=== PATIENT | female | born 1930 | race Caucasian/White ===

== ENCOUNTER → 2017-06-14 09:10 | Emergency (ER) | payer OTHER, MEDICARE ==
[~2017-06-14] VITALS: Ht 172.7 cm; Wt 81.6 kg
[2017-06-14 09:49] VITALS: BP 0/0
--- NOTE | 2017-06-14 09:51 | ED CRITICAL CARE ---
History of Present Illness General Chief Complaint: Cardiopulmonary Resuscitation Stated Complaint: CARDIAC ARREST Source: family, old records, EMS Exam Limitations: no limitations Vital Signs & Intake/Output Vital Signs & Intake/Output Vital Signs Date Time Temp Pulse Resp B/P B/P Pulse O2 O2 Flow FiO2 Mean Ox Delivery Rate 06/14 0949 0 0 0/0 . Allergies Uncoded Allergies: Allergy Other NONE Med Allergies NKA Triage Nurses Notes Reviewed? yes Onset: Just prior to arrival Duration: minute(s):, constant, continues in ED Timing: recent history Injury Environment: home Severity: severe Pain Location: none Modifying Factors: Improves With: other. LMP (ages 10-50): post menopausal : No Patient currently breastfeeds: No HPI: Prior to admission while seated at the breakfast table the patient slumped over unresponsive. EMS found the patient to be in asystole and started ACLS protocol. After epinephrine 3 the patient was found to have sinus bradycardia that reverted to asystole. DNR/I forms found, CPR continued. The family denies fever chills nausea vomiting diarrhea abdominal pain chest pain shortness of breath headache dysuria rash bleeding. Past History Travel History Traveled to [place] past 21 day No Medical History Any Pertinent Medical History? see below for history Neurological: dementia Cardiovascular: CAD, CHF, hypertension Respiratory: COPD, lung cancer Psychiatric: anxiety Surgical History Surgical History: non-contributory Psychosocial History What is your primary language Indonesian Family History Hx Contributory? No Review of Systems Review of Systems Constitutional: Reports: see HPI, weakness. Eyes: Reports: no symptoms. Ears, Nose, Throat, Mouth: Reports: no symptoms. Respiratory: Reports: no symptoms. Cardiovascular: Reports: no symptoms. Gastrointestinal/Abdominal: Reports: no symptoms. Genitourinary: Reports: no symptoms. Musculoskeletal: Reports: no symptoms. Skin: Reports: no symptoms. Neurological/Psychological: Reports: see HPI, weakness. All Other Systems: Reviewed and Negative Physical Exam Physical Exam General Appearance: well developed/nourished, obese Head: atraumatic, normal appearance Eyes: Bilateral: other (pupils fixed and dilated). Ears, Nose, Throat, Mouth: dry mucous membranes Neck: normal inspection Respiratory: no spontaneous respiration Cardiovascular: no cardiac activity Peripheral Pulses: 0 carotid (R), 0 carotid (L), 0 femoral (R), 0 femoral (L) Gastrointestinal: soft, no organomegaly Back: normal inspection Extremities: no ligament instability Neurologic/Psych: motor/sensory deficits Skin: intact, pallor Core Measures ACS in differential dx? Yes No ASA d/t Medical Contraindication CVA/TIA Diagnosis No Sepsis Present: No Sepsis Focused Exam Completed? No Progress Differential Diagnoses I considered the following diagnoses in my evaluation of the patient: AMI respiratory arrest asystole Plan of Care: pronounced 910 AM Initial ED EKG: none Rhythm Strip: asystole Comments: Family updated PMD updated package completed Departure Departure Time of Disposition: 909 Disposition: Condition: Stable Clinical Impression Primary Impression: Cardiac asystole Referrals: Zachary BROWNING,MNey Garcia (PCP/Family) Departure Forms: General Discharge Information Critical Care Note Critical Care Note Critical Care Time: non-applicable
== END | disposition expired ==
LOC: ERH 09:10 → ENTRNSPT 12:05 → EDTRNSPTSTS 12:07 → CMPTRNSPT 12:15 → ERH 12:31
DX: I46.9 Cardiac arrest, cause unspecified (principal)
CPT/HCPCS: 1387; 94799; 99291